=== PATIENT | female | born 1950 | race Caucasian/White ===

== ENCOUNTER → 2016-07-28 14:42 | Outpatient (CLI) | payer BC ==
[2015-04-15 14:17] VITALS: BMI 47.9
[~2016-07-28 14:42] MED LIST: CALCIUM PO; DITROPAN X10 MG/BOTT PO; GABAPENTIN100 MG PO; HYDROCODONE-APA1 TAB PO; HYDROXYZINE HCL10 MG PO; HYZAAR 100-25 T1 TAB PO; MAGNESIUM PO; PROZAC20 MG PO; SYNTHROID137 MCG PO; TEMAZEPAM PO; ULTRAM50 MG PO; VOLTAREN75 MG PO
== END | disposition home or self-care (01) ==
LOC: D.US 14:42 → D.MRI 16:00
DX: M54.5 Low back pain (principal); E04.1 Nontoxic single thyroid nodule

== ENCOUNTER 2016-09-27 21:35 | Emergency (ER) | payer BC ==
[2015-04-15 14:17] VITALS: BMI 47.9
[2016-09-27 23:35] LABS: HEMATOCRIT 36.2 % (36.0-48.0); HEMOGLOBIN 12.1 g/dL (12-16); LYMPHOCYTES 5.4 % (15-50); MCH 29.4 pg (26.0-34.0); MCHC 33.4 g/dL (31.0-37.0); MCV 87.9 fL (80.0-100.0); MEAN PLATELET VOLUME 9.9 fL (7.4-10.4); NEUTROPHILS 87.3 % (40-80); PLATELET COUNT 191 10x3/uL (130-400); RBC 4.12 10x6/uL (4.00-5.40); RDW 14.1 % (11.5-14.5); WBC 7.8 10x3/uL (4.8-10.8)
[2016-09-27 23:41] LABS: COLOR YELLOW (YELLOW)
[2016-09-27 23:42] LABS: ANION GAP 13.1 mmol/L (8-16); CALCIUM 9.2 mg/dL (8.5-10.1); CREATININE - SERUM 0.9 mg/dL (0.6-1.3); POTASSIUM - SERUM 3.1 mmol/L (3.5-5.1)
[2016-09-27 23:42] LABS: APPEARANCE CLEAR (CLEAR); BILIRUBIN NEGATIVE (NEGATIVE); GLUCOSE NEGATIVE (NEGATIVE); KETONE SMALL mg/dL (NEGATIVE); LEUKOCYTE ESTERASE NEGATIVE (NEGATIVE); NITRITE NEGATIVE (NEGATIVE); PROTEIN TRACE mg/dL (NEGATIVE); SPECIFIC GRAVITY 1.015 (1.005-1.020); UROBILINOGEN NORMAL (NORMAL)
[2016-09-27 23:43] LABS: BACTERIA NONE SEEN /hpf (NONE SEEN); EPITHELIAL CELLS 0-5 /hpf (0-5); RED CELLS - URINE 0-5 /hpf (0-5); WHITE CELLS - URINE 0-5 /hpf (0-5)
== END 2016-09-28 00:35 | disposition home or self-care (01) ==
LOC: D.ER 21:35
PROVIDERS: Family Medicine
DX: R50.9 Fever, unspecified (principal)

== ENCOUNTER → 2017-12-28 12:21 | Outpatient (CLI) | payer OTHER ==
[2015-04-15 14:17] VITALS: BMI 47.9
== END | disposition home or self-care (01) ==
LOC: D.RAD 12:21
DX: M25.551 Pain in right hip (principal)

== ENCOUNTER → 2018-01-08 16:26 | Outpatient (CLI) | payer OTHER ==
[2015-04-15 14:17] VITALS: BMI 47.9
== END | disposition home or self-care (01) ==
LOC: D.MAMMO 15:15
DX: Z12.31 Encounter for screening mammogram for malignant neoplasm of breast (principal)

== ENCOUNTER → 2018-01-17 14:00 | Outpatient (CLI) | payer OTHER ==
[2015-04-15 14:17] VITALS: BMI 47.9
--- NOTE | ~2018-01-17 | HEMODYNAMI ---
PATIENT:ADELIA RYAN MEDICAL RECORD: [id number] : 52 LOCATION:[place] ADMISSION DATE: 01/17/18 Generatedon:01/17/201814:49 Patient name: ADELIA RYAN Patient #: [id number] SSN: D OB: 1950 Date of study: 01/17/2018 Page: Of Hemodynamic Procedure Report Patient Data Patient Demographics Procedure consent was obtained First Name: ADELIA Gender: Female Last Name: SHELBY : 1950 Middle Initial: J Age: 67 year(s) Patient #: [id number] Race: Unknown Additional ID: [id number] Contact details [address]: [address] [place] [address] State: [place] City: [place] Zip code: [address] Past Medical History Allergies Allergen Reaction Date Comments Reported Other allergy 01/17/2018 phosamax and element sulfa Admission Admission Data Admission Date: 01/17/2018 Admission Time: 14:00 Procedure Procedure Types Cath Procedure Peripheral Cath Diagnostic Procedure Biliary Biliary Drain Removal w/Guidance Procedure Description Procedure Date Procedure Date: 01/17/2018 Procedure Start Time: 14:36 Procedure Staff Name Function Brandyn Vieira RT Monitor Bethany Bolton RN Nurse Kassie Gross MD Performing Physician Procedure Data Cath Procedure Fluoroscopy Diagnostic fluoroscopy Total fluoroscopy Time: 0.9 time: 0.9 min min Diagnostic fluoroscopy Total fluoroscopy dose: 17 dose: 17 mGy mGy Contrast Material Contrast Material Type Amount (ml) Isovue 300 10 Hemodynamics Rest Pre Cath Intra NCS Post Cath Procedure Log Time Note 14:15:27 Brandyn Vieira RT (R) (CV) sent for patient. Start room use. 14:15:40 Patient received from Outpatients to IR Alert and oriented. Tansferred to table in Supine position. 14:15:42 Correct patient and procedure confirmed by team. 14:15:44 Signed procedure consent form obtained from patient. 14:15:45 Pre-procedure instructions explained to patient. 14:15:46 Pre-op teaching completed and patient verbalized understanding. 14:17:09 Patient allergic to Other allergyphosamax and element sulfa 14:17:15 Is patient on blood thinner?No 14:17:28 Right groin area was prepped with betadine and draped in sterile fashion 14:36:13 Physician arrived 14:36:14 Final Timeout: patient, procedure, and site verified with staff and physician. All members of the team are in agreement. 14:36:14 --------ALL STOP TIME OUT------ 14:36:16 Right groin site verified by team. 14:36:22 Sedation plan: Local Anesthetic Medication:Lidocaine 14:36:43 Full Disclosure recording started 14:36:43 Procedure started. 14:36:49 Local anesthetic to right hip with Lidocaine 1% by Kassie Gross MD.INITIAL ACCESS ONLY 14:37:09 SAFE-T PLUS MYELOGRAM TRAY opened to sterile field. 14:46:29 Procedure ended.(Physican Out) 14:46:44 Fluoroscopy time 00.90 minutes. 14:46:49 Fluoroscopy dose: 17 mGy 14:46:49 Flurop Dose total: 17 14:47:00 Contrast amount:Isovue 300 10ml. 14:47:29 bandaide applied to site and pt sent home 14:48:01 Full Disclosure recording stopped Device Usage Item Name Manufacture Quantity Catalog Hospital Part Current Minimal Lot# / Number Charge Number Stock Stock Serial# Code SAFE-T CareFusion 1 [id number] PLUS MYELOGRAM TRAY Signature Audit [place] Stage Time Signature Unsigned Intra-Procedure 01/17/2018 Brandyn Vieira RT 2:47:55 PM Dariel RT (R) (CV) 01/17/2018 (R) (CV) 2:48:28 PM Intra-Procedure 01/17/2018 Brandyn 2:48:58 PM Dariel RT (R) (CV) Signatures Monitor : Brandyn Signature : Dariel RT Date : Time : [address] [address]
== END | disposition home or self-care (01) ==
LOC: D.SP 14:00
DX: M16.11 Unilateral primary osteoarthritis, right hip (principal); M25.551 Pain in right hip

== ENCOUNTER → 2018-04-18 13:22 | Outpatient (CLI) | payer MEDICARE, BC ==
[2015-04-15 14:17] VITALS: BMI 47.9
--- NOTE | ~2018-04-18 | HEMODYNAMI ---
PATIENT:ADELIA RYAN MEDICAL RECORD: [id number] : 52 LOCATION:[place] ADMISSION DATE: 04/18/18 Generatedon:04/18/201814:43 Patient name: ADELIA RYAN Patient #: [id number] SSN: D OB: 1950 Date of study: 04/18/2018 Page: Of Hemodynamic Procedure Report Patient Data Patient Demographics Procedure consent was obtained First Name: ADELAI Gender: Female Last Name: SHELBY : 1950 Middle Initial: J Age: 67 year(s) Patient #: [id number] Race: Unknown Additional ID: [id number] Contact details Address: [address] [place] [address] State: [place] City: [place] Zip code: [address] Past Medical History Allergies Allergen Reaction Date Comments Reported Other allergy 01/17/2018 phosamax and element sulfa Other allergy 04/18/2018 PHOSAMAX Admission Admission Data Admission Date: 04/18/2018 Admission Time: 13:22 Procedure Procedure Types Cath Procedure Peripheral Cath Diagnostic Procedure Miscellaneous Procedure Description Procedure Date Procedure Date: 04/18/2018 Procedure Start Time: 14:32 Procedure Staff Name Function Angel Navas MD Performing Physician Brandyn Vieira RT Monitor Elizabeth Alonzo RT Scrub Tarah Rodriguez RN Nurse Procedure Data Cath Procedure Fluoroscopy Diagnostic fluoroscopy Total fluoroscopy Time: 0.8 time: 0.8 min min Diagnostic fluoroscopy Total fluoroscopy dose: 15 dose: 15 mGy mGy Contrast Material Contrast Material Type Amount (ml) Isovue 300 10 Hemodynamics Rest Pre Cath Intra NCS Post Cath Procedure Log Time Note 14:26:06 Brandyn Vieira RT (R) (CV) sent for patient. Start room use. 14:26:12 Patient received from Other to IR Alert and oriented. Tansferred to table in Supine position. 14:26:19 Correct patient and procedure confirmed by team. 14:26:19 Correct patient and procedure confirmed by team. 14:26:23 Signed procedure consent form obtained from patient. 14:26:24 Full Disclosure recording started 14::25 - 14::49 Patient allergic to Other allergyPHOSAMAX 14::55 Is the patient allergic to Iodine/contrast media? No. 14::59 Is patient on blood thinner?No 14:27:06 Right groin area was prepped with chlora-prep and draped in sterile fashion 14:30:28 - 14:30:32 SAFE-T PLUS MYELOGRAM TRAY opened to sterile field. 14:31:16 Physician arrived 14:31:19 --------ALL STOP TIME OUT------ 14:31:20 Final Timeout: patient, procedure, and site verified with staff and physician. All members of the team are in agreement. 14:32:07 Procedure started. 14:32:55 Local anesthetic to right HIP AREA with Lidocaine 1% by Angel Navas MD.INITIAL ACCESS ONLY 14:38:35 KENALOG AND BUPIVACAINE INJECTED INTO RIGHT HIP JOINT, SEE NURSES NOTES FOR DOSE AMOUNT 14:41:41 Procedure ended.(Physican Out) 14:41:55 Fluoroscopy time 00.80 minutes. 14:41:59 Fluoroscopy dose: 15 mGy 14:41:59 Flurop Dose total: 15 14:42:19 Contrast amount:Isovue 200 10ml. 14:42:36 Procedure and supply charges have been captured, reviewed, submitted an d are correct. 14:43:03 Patient transfered to Other with Ambulatory. Device Usage Item Name Manufacture Quantity Catalog Hospital Part Current Minimal Lot# / Number Charge Number Stock Stock Serial# Code SAFE-T CareFusion 1 [id number] PLUS MYELOGRAM TRAY Signature Audit [place] Stage Time Signature Unsigned Intra-Procedure 04/18/2018 Elizabeth Alonzo 2:43:40 PM RT(R) Signatures Monitor : Brandyn Signature : Dariel RT Date : Time : [place] [id number] [place] [address]
== END | disposition home or self-care (01) ==
LOC: D.RAD 13:22
DX: M16.11 Unilateral primary osteoarthritis, right hip (principal)

== ENCOUNTER → 2018-05-03 12:24 | Outpatient (CLI) | payer MEDICARE, BC ==
[2015-04-15 14:17] VITALS: BMI 47.9
--- NOTE | ~2018-05-03 | HEMODYNAMI ---
PATIENT:ADELIA RYAN MEDICAL RECORD: [id number] : 52 LOCATION:LEV ADMISSION DATE: 05/03/18 Generatedon:05/03/201813:39 Patient name: ADELIA RYAN Patient #: [id number] SSN: D OB: 1950 Date of study: 05/03/2018 Page: Of Hemodynamic Procedure Report Patient Data Patient Demographics Procedure consent was obtained First Name: ADELIA Gender: Female Last Name: SHELBY : 1950 Middle Initial: J Age: 67 year(s) Patient #: [id number] Race: Unknown Additional ID: [id number] Contact details Address: [address] [place] [address] State: [place] City: [place] Zip code: [address] Past Medical History Allergies Allergen Reaction Date Comments Reported Other allergy 01/17/2018 phosamax and element sulfa Other allergy 04/18/2018 PHOSAMAX Other allergy 05/03/2018 PHOSOMAX Admission Admission Data Admission Date: 05/03/2018 Admission Time: 12:24 Procedure Procedure Types Cath Procedure Peripheral Cath Diagnostic Procedure Miscellaneous Aspiration/Injection (Joint) Procedure Description Procedure Date Procedure Date: 05/03/2018 Procedure Start Time: 13:25 Procedure Staff Name Function Kassie Gross MD Performing Physician Brandyn Vieira RT Monitor Bethany Bolton RN Nurse Procedure Data Cath Procedure Fluoroscopy Diagnostic fluoroscopy Total fluoroscopy Time: 0.3 time: 0.3 min min Diagnostic fluoroscopy Total fluoroscopy dose: 6 dose: 6 mGy mGy Hemodynamics Rest Pre Cath Intra NCS Post Cath Procedure Log Time Note 13:17:57 Brandyn Vieira RT (R) (CV) sent for patient. Start room use. 13:18:00 Time tracking: Regular hours (M-F 7:00 - 5:00) 13:18:10 Patient received from Other to IR Alert and oriented. Tansferred to table in Supine position. 13:18:15 Correct patient and procedure confirmed by team. 13:18:17 Signed procedure consent form obtained from patient. 13:18:21 - 13:18:21 Full Disclosure recording started 13:18:22 Pre-procedure instructions explained to patient. 13:18:23 Pre-op teaching completed and patient verbalized understanding. 13:18:41 Patient allergic to Other allergyPHOSOMAX 13:18:47 Is patient on blood thinner?No 13:18:58 Left HIP was prepped with betadine and draped in sterile fashion. 13:25:08 Physician arrived 13:25:09 --------ALL STOP TIME OUT------ 13:25:11 Final Timeout: patient, procedure, and site verified with staff and physician. All members of the team are in agreement. 13:25:14 Left HIP site verified by team. 13:25:36 Sedation plan: Local Anesthetic Medication:Lidocaine 13:25:44 Procedure started. 13:25:56 Local anesthetic to left HIP with Lidocaine 1% by Kassie Gross MD.INITIAL ACCESS ONLY 13:30:26 SAFE-T PLUS MYELOGRAM TRAY opened to sterile field. 13:37:39 Procedure ended.(Physican Out) 13:38:12 Fluoroscopy time 00.30 minutes. 13:38:15 Fluoroscopy dose: 6 mGy 13:38:15 Flurop Dose total: 6 13:38:50 BANDIDE APPLIED TO LEFT HIP.LT.HIP SITE STABLE PT DOING WELL PT SENT HOME Device Usage Item Name Manufacture Quantity Catalog Hospital Part Current Minimal Lot# / Number Charge Number Stock Stock Serial# Code SAFE-T CareFusion 1 [id number] PLUS MYELOGRAM TRAY Signature Audit [place] Stage Time Signature Unsigned Intra-Procedure 05/03/2018 Brandyn 1:39:50 PM [place] RT (R) (CV) Signatures Monitor : Brandyn Signature : [place] RT Date : Time : [facility] [address] [place] [address]
== END | disposition home or self-care (01) ==
LOC: D.RAD 10:00 → D.SP 12:24 → D.RAD 13:00 → D.SP 13:00
DX: M25.552 Pain in left hip (principal)

== ENCOUNTER 2019-11-27 13:04 | Outpatient (CLI) | payer MEDICARE, BC ==
[~2019-11-27] VITALS: Ht 152.4 cm; Wt 119.5 kg
[2019-11-27 13:41] VITALS: Ht 152.4 cm; Wt 119.5 kg
== END 2019-11-27 14:09 | disposition home or self-care (01) ==
LOC: D.OPS 13:04
PROVIDERS: ATTEND Family Medicine
DX: M81.0 Age-related osteoporosis without current pathological fracture (principal)

== ENCOUNTER 2020-06-02 13:33 | Outpatient (CLI) | payer MEDICARE, BC ==
[~2020-06-02] VITALS: Ht 152.4 cm; Wt 119.5 kg
[2020-06-02 14:07] VITALS: Ht 152.4 cm; Wt 119.5 kg
== END 2020-06-02 14:18 | disposition home or self-care (01) ==
LOC: D.OPS 13:33
PROVIDERS: ATTEND Family Medicine
DX: M81.0 Age-related osteoporosis without current pathological fracture (principal)

== ENCOUNTER 2020-08-21 15:00 | Outpatient (CLI) | payer MEDICARE, BC ==
[2020-06-02 14:07] VITALS: BMI 51.4
== END 2020-08-21 23:59 | disposition home or self-care (01) ==
LOC: D.MAMMO 15:00
PROVIDERS: ATTEND Family Medicine
DX: Z12.31 Encounter for screening mammogram for malignant neoplasm of breast (principal)